=== PATIENT | male | born 2005 | race Caucasian/White ===

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

== ENCOUNTER 2025-02-12 14:38 | Emergency (ER) | payer OTHER ==
[2025-02-12] MEDS ORDERED: Dexamethasone 10 MG/ML VIAL ONE (15:28)
== END 2025-02-12 15:57 | disposition home or self-care (01) ==
LOC: MADERS 14:38
DX: H65.92 Unspecified nonsuppurative otitis media, left ear (principal); R09.81 Nasal congestion; J45.909 Unspecified asthma, uncomplicated; Z79.51 Long term (current) use of inhaled steroids
CPT/HCPCS: 87428; 99283; J1100